=== PATIENT | male | born 1965 | race Caucasian/White ===

== ENCOUNTER 2018-12-18 10:19 | Emergency (ER) | payer SELFPAY ==
[~2018-12-18] VITALS: Ht 175.3 cm; Wt 83.2 kg
[2018-12-18 10:43] VITALS: BP 157/100
--- NOTE | 2018-12-18 10:47 | NUR ---
PT AMBULATED TO ER BED 02
--- NOTE | 2018-12-18 10:49 | NUR ---
53/M BIB C/O LLQ PAIN X 2 HRS, PT HAD BOWEL MOVEMENT THIS AM. DENIES N/V/D; SKIN IS PINK/WARM/DRY; AAOX4 WITH EVEN AND STEADY GAIT.ABDOMEN SOFT. PATIENT STATES PAIN OF 10/10 AT THIS TIME. PATIENT POSITIONED FOR COMFORT; HOB ELEVATED; BEDRAILS UP X2; BED DOWN. ER MD MADE AWARE OF PT STATUS.
[2018-12-18] MEDS ORDERED: KETOROLAC 30 MG/ML VIAL IVP ONE (11:40)
--- NOTE | 2018-12-18 12:11 | NUR ---
LAB AT BEDSIDE
[2018-12-18 12:17] LABS: BASOPHILS % (AUTO) 0.3 % (0.0-2.0); EOSINOPHILS % (AUTO) 0.4 % (0.0-4.0); HEMATOCRIT 42.2 % (36-52); HEMOGLOBIN 13.7 g/dL (12.0-18.0); LYMPHOCYTES # (AUTO) 0.6 K/uL (2.0-11.5); LYMPHOCYTES % (AUTO) 10.6 % (20.5-51.1); MEAN CORPUSCULAR HEMOGLOBIN 29 pg (27-31); MEAN CORPUSCULAR HGB CONC 32 g/dL (33-37); MEAN CORPUSCULAR VOLUME 88.5 fL (80-94); MONOCYTES # (AUTO) 0.3 K/uL (0.8-1.0); NEUTROPHILS # (AUTO) 4.8 K/uL (1.8-7.7); NEUTROPHILS % (AUTO) 83.7 % (42.2-75.2); PLATELET COUNT (AUTO) 188 K/uL (140-450); RED BLOOD CELL COUNT(AUTO) 4.77 MIL/uL (4.20-6.10); RED CELL DISTRIBUTION WIDTH 12.8 % (11.6-13.7); WHITE BLOOD COUNT (AUTO) 5.7 K/uL (4.8-10.8)
[2018-12-18 12:20] LABS: APPEARANCE,URINE CLEAR (CLEAR); BILIRUBIN,URINE NEGATIVE (NEGATIVE); BLOOD, URINE 2+ (NEGATIVE); COLOR,URINE YELLOW (YELLOW); LEUKOCYTE ESTERASE ,URINE NEGATIVE (NEGATIVE); NITRITE, URINE NEGATIVE (NEGATIVE); PH,URINE 7.5 (5.0-9.0); UGLUCOSE NEGATIVE (NEGATIVE)
[2018-12-18 12:25] LABS: ANION GAP 11.1 (8-16); CARBON DIOXIDE 31.7 mmol/L (21-32); CREATININE 1.2 mg/dL (0.7-1.3); POTASSIUM 3.8 mmol/L (3.5-5.1)
[2018-12-18 12:29] LABS: ALBUMIN 3.6 g/dL (3.4-5.0); TOTAL BILIRUBIN 0.9 mg/dL (0.0-1.0)
[2018-12-18 12:33] LABS: WBC,URINE 0-5 /HPF (0-5)
[2018-12-18 13:13] VITALS: BP 124/67
--- NOTE | 2018-12-18 13:13 | NUR ---
Patient discharged with v/s stable. Written and verbal after care instructions given and explained. Patient alert, oriented and verbalized understanding of instructions. Ambulatory with steady gait. All questions addressed prior to discharge. ID band removed. Patient advised to follow up with PMD. Rx of ZOFRAN, NAPROSYN & NORCO given. Patient educated on indication of medication including possible reaction and side effects. Opportunity to ask questions provided and answered.
== END 2018-12-18 13:13 | disposition home or self-care (01) ==
LOC: MED 10:19
DX: N20.1 Calculus of ureter (principal); I10 Essential (primary) hypertension; Z88.0 Allergy status to penicillin; Z87.442 Personal history of urinary calculi
CPT/HCPCS: 36415; 80053; 81001; 85025; 96374; 99283; J1885